=== PATIENT | female | born 1930 | race Caucasian/White ===

== ENCOUNTER 2016-09-06 17:29 | Emergency (ER) | payer MEDICARE, OTHER ==
[~2016-09-06 17:29] MED LIST: CITALOPRAM HBR10 MG PO; COLESTID1 GM PO; COREG3.125 MG PO; LACTINEX1 EACH PO; LAXATIVE OF CHOICE; LEVOTHYROXINE75 MCG PO; LOVASTATIN20 MG PO; NORCO 5/3251 EACH PO; PREDNISONE5 MG PO; PRILOSEC20 MG PO; TYLENOL325 M1 PO; VITAMIN B COMP1 EACH PO; VITAMIN D5000 UNIT PO; XANAX1 MG PO; ZOFRAN ODT4 MG PO
[2016-09-06 18:07] LABS: BASOPHIL 0.2 % (0-2); EOSINOPHIL 0.7 % (0-7); HCT 35.4 % (37.0-47.0); HGB 11.9 g/dl (12.5-16.0); LYMPHOCYTE 26.9 % (15-48); MCH 31.8 pg (25.0-31.0); MCHC 33.6 g/dL (32.0-36.0); MCV 94.7 fL (78.0-100.0); MONOCYTE 8.3 % (0-12); MPV 9.6 fL (6.0-9.5); NEUTROPHIL 63.9 % (41-80); PLT 239 K/uL (150-400); RBC 3.74 M/uL (4.20-5.40); RDW 15.2 % (11.5-14.0); WBC 8.5 K/uL (4.0-10.5)
[2016-09-06 18:18] LABS: BILIRUBIN - TOTAL 0.4 mg/dL (0.1-1.0); GLOBULIN (CALCULATION) 2.5 g/dL (2.2-4.2); MAGNESIUM 1.81 mg/dL (1.40-2.10); POTASSIUM 4.2 mmol/L (3.5-5.1); TOTAL PROTEIN 6.5 g/dL (6.4-8.3)
[2016-09-06 18:19] LABS: INR 0.91 (0.9-1.2); PROTHROMBIN TIME 11.9 SECONDS (11.7-14.0); PTT 25.8 SECONDS (23.2-31.4)
[2016-09-06 18:20] LABS: CKMB 4.14 ng/mL (0.97-4.94); D-DIMER 0.46 ug/mLFEU (0.00-0.41); TROPONIN T 0.011 ng/mL
== END 2016-09-06 21:00 | disposition home or self-care (01) ==
LOC: FER 17:29
PROVIDERS: Internal Medicine
DX: R07.89 Other chest pain (principal); I10 Essential (primary) hypertension; F41.9 Anxiety disorder, unspecified; Z88.0 Allergy status to penicillin; Z88.5 Allergy status to narcotic agent; Z79.899 Other long term (current) drug therapy; Z88.2 Allergy status to sulfonamides
CPT/HCPCS: 36415; 71010; 80053; 82550; 82553; 83735; 83874; 83880; 84484; 85025; 85379; 85610; 85730; 93005